=== PATIENT | female | born 1945 | race Caucasian/White ===

== ENCOUNTER 2017-11-22 18:00 | Emergency (ER) | payer MEDICARE, MEDICAID ==
[2017-11-22 19:32] VITALS: BP 193/67
--- NOTE | 2017-11-22 19:34 | UC ---
Skin Complaint HPI - HPI Summary HPI Summary: Pt is non-verbal, thus the history is provided by the aide, Blossom, with her today. Paper Sales Representative tells me that pt had dental extractions performed in early october and was on a lot of antibiotics around that time. In the middle of the month the staff noticed that pt had a white tongue. They took her to her PCP who diagnosed pt with thrush and prescribed nystatin for 1 week. Unfortunately, pt has a g-tube and is unable to "swish and spit/swallow", so the staff have been applying the nystatin around her mouth with a cotton applicator. They did this for 1 week with no relief. The thrush is persisting - prompting the visit to today as they could not get in to see their PCP. - History of Current Complaint Chief Complaint: UCSkin Time Seen by Provider: 11/22/17 19:33 Stated Complaint: THRUSH Hx Obtained From: Family/Paper Sales Representative Onset/Duration: Gradual Onset Pain Intensity: 0 - Allergy/Home Medications Allergies/Adverse Reactions: Allergies Allergy/AdvReac Type Severity Reaction Status Date / Time Phnohfl-Pst-Ckz Reductase Allergy Unknown Verified 11/22/17 19:33 Inhibitor Reaction Details Home Medications: Home Medications Apixaban* [Eliquis*] 5 mg PO BID 11/22/17 [History Confirmed 11/22/17] Calcium Carbonate/Mag Carb [Magnebind 300 Tablet] 1 each PO DAILY 11/22/17 [ History Confirmed 11/22/17] Losartan TAB* [Cozaar TAB*] 50 mg PO DAILY 11/22/17 [History Confirmed 11/22/17] Sotalol TAB* [Betapace 80 MG TAB*] 80 mg PO BID 11/22/17 [History Confirmed 12/30] buPROPion TAB* [Wellbutrin TAB*] 100 mg PO BID 11/22/17 [History Confirmed 11/22] Review of Systems Constitutional: Negative Skin: Negative Eyes: Negative ENT: Other - Thrush Respiratory: Negative Cardiovascular: Negative Gastrointestinal: Negative Neurovascular: Negative Neurological: Negative Psychological: Negative All Other Systems Reviewed And Are Negative: Yes PMH/Surg Hx/FS Hx/Imm Hx Endocrine History: Hypothyroidism Cardiovascular History: Cardiac Disease, Hypertension, Congestive Heart Failure , Atrial Fibrillation Psychological History: Anxiety, Depression - Surgical History Surgical History: Yes Surgery Procedure, Year, and Place: Tubal Ligation. Cardiac Stents, and - Family History Known Family History: Positive: Unknown, Cardiac Disease, Other Negative: Diabetes - Social History Alcohol Use: None Substance Use Type: None Smoking Status (MU): Never Smoked Tobacco Have You Smoked in the Last Year: No Physical Exam - Summary Physical Exam Summary: GENERAL: NAD. SKIN: No rashes, sores, lesions, or open wounds. HEENT: Throat: Tongue with moderate thick white coating. Posterior oropharynx without exudates, erythema, or tonsillar enlargement. Uvula midline. NECK: Supple. No lymphadenopathy. CHEST: No accessory muscle use. Breathing comfortably and in no distress. CV: Pulses intact. Cap refill <2seconds NEURO: Alert. PSYCH: Age appropriate behavior. Triage Information Reviewed: Yes Vital Signs: Initial Vital Signs Temp 97.9 F 11/22/17 19:26 Pulse 65 11/22/17 19:26 Resp 16 11/22/17 19:26 BP 193/67 11/22/17 19:26 Pulse Ox 95 11/22/17 19:26 Vital Signs Reviewed: Yes Course/Dx - Course Course Of Treatment: Recheck BP 132/72 manual - suspect machine error on first reading. At this time it appears that Suma has thrush. She has not responded 1 week of Nystatin therapy. I would like to treat her with Fluconazole /Diflucan. Unfortunately, her medications - specifically Amiodarone - have a strong interaction with Fluconazole/Diflucan and those related to it. Therefore , please contact her PCP and Docketing Specialist to ask if she can take Fluconazole/ Diflucan for her thrush and insure that she has close follow up. At this time, I will prescribe Suma Nystatin 5mL QID to apply inside the mouth with applicator for 14 days. - Diagnoses Provider Diagnoses: Thrush Discharge - Sign-Out/Discharge Documenting (check all that apply): Patient Departure All imaging exams completed and their final reports reviewed: No Studies - Discharge Plan Condition: Stable Disposition: HOME Prescriptions: Nystatin SUSPENSION* 5 ml PO QID #280 ml Patient Education Materials: Oral Candidiasis (ED) Referrals: David Pimentel MD [Primary Care Provider] - As Soon As Possible Additional Instructions: At this time it appears that Suma has thrush. She has not responded 1 week of Nystatin therapy. I would like to treat her with Fluconazole/Diflucan. Unfortunately, her medications - specifically Amiodarone - have a strong interaction with Fluconazole/Diflucan and those related to it. Therefore, please contact her PCP and Docketing Specialist to ask if she can take Fluconazole/ Diflucan for her thrush and insure that she has close follow up. At this time, I will prescribe Suma Nystatin 5mL QID to apply inside the mouth with applicator for 14 days. - Billing Disposition and Condition Condition: STABLE Disposition: Home
== END 2017-11-22 20:06 | disposition home or self-care (01) ==
LOC: UCCORT 18:00
DX: B37.9 Candidiasis, unspecified (principal); Z88.8 Allergy status to other drugs, medicaments and biological substances; F41.8 Other specified anxiety disorders
CPT/HCPCS: 99212; G0463